=== PATIENT | male | born 1950 | race Caucasian/White ===

== ENCOUNTER → 2020-09-22 | Outpatient (CLI) | payer MEDICARE ==
[~2020-09-22] MED LIST: ASPI81TA45 PO; ATOR40TA78 PO; CHOL10003 PO; METO25TA35 PO
[2020-09-22 15:55] LABS: BASOPHILS % (AUTO) 2 % (0-1); EOSINOPHILS % (AUTO) 3 % (1-7); LYMPHOCYTES % (AUTO) 29 % (22-44); MEAN CORPUSCULAR HEMOGLOBIN 31.2 pg (27.5-34.5); MEAN CORPUSCULAR HGB CONC 33.7 g/dL (33.2-36.2); MEAN PLATELET VOLUME 8.7 fL (7.4-10.4); MONOCYTES % (AUTO) 11 % (2-9); NEUTROPHILS % (AUTO) 55 % (42-75); PLATELET COUNT 182 x10^3/uL (130-400); RED BLOOD COUNT 4.73 x10^6/uL (4.38-5.82); RED CELL DISTRIBUTION WIDTH 15.3 % (9.4-14.8)
[2020-09-22 16:03] LABS: ANION GAP 3 mmol/L (5-15); CALCIUM 8.8 mg/dL (8.5-10.1); CHLORIDE 108 mmol/L (98-107); CREATININE 1.08 mg/dL (0.7-1.3)
[2020-09-22 16:25] LABS: MICROSCOPIC INDICATED
[2020-09-22 16:27] LABS: MD SCAN
== END | disposition home or self-care (01) ==
LOC: STAR 14:33
PROVIDERS: ATTEND Urology
DX: Z01.818 Encounter for other preprocedural examination (principal); N20.1 Calculus of ureter
CPT/HCPCS: 36415; 80048; 81001; 85025; 87086; 93005

== ENCOUNTER 2020-09-28 14:23 | Day surgery (SDC) | payer MEDICARE ==
[~2020-09-28] VITALS: Ht 175.3 cm; Wt 90.7 kg
[2020-09-28] MEDS ORDERED: CHLORHEXIDINE 15 ML UDC ONE (14:43)
[2020-09-28] MEDS ORDERED: LACTATED RINGERS 1,000 ML IV SCH (15:00)
[2020-09-28] MEDS ORDERED: CHLORHEXIDINE 15 ML UDC MM ONE (15:00)
[2020-09-28 15:02] VITALS: BP 123/79
[2020-09-28] MEDS ORDERED: NITR100C56 PO (15:02)
[2020-09-28] MEDS ORDERED: FENTANYL PF 250 MCG/5ML ONE (16:02)
[2020-09-28] MEDS ORDERED: OMNIPAQUE 350 MG/ML, 50 ML BOTTLE ONE (16:04)
[2020-09-28] MEDS ORDERED: LABETALOL 5MG/ML, 20ML IV PRN (16:30)
[2020-09-28] MEDS ORDERED: MEPERIDINE/PF 25MG/0.5ML IVPush PRN (16:30)
[2020-09-28] MEDS ORDERED: OXYcodone 5 MG/5 ML ORAL.SOL UDC PO PRN (16:30)
[2020-09-28] MEDS ORDERED: HYDROmorphone 2 MG/ML, 1ML IVPush PRN (16:30)
[2020-09-28] MEDS ORDERED: FENTANYL PF 100 MCG/2ML IV PRN (16:30)
[2020-09-28] MEDS ORDERED: hydrALAzine 20 MG/ML, 1ML IV PRN (16:30)
[2020-09-28] MEDS ORDERED: ALBUTEROL SULFATE 2.5 MG/3 ML NPPB PRN (16:30)
[2020-09-28] MEDS ORDERED: ACETAMINOPHEN 325 MG TABLET PO PRN (16:30)
[2020-09-28] MEDS ORDERED: PROMETHAZINE 25 MG/ML, 1ML IV PRN (16:30)
[2020-09-28] MEDS ORDERED: KETOROLAC 30 MG/1 ML IV PRN (16:30)
[2020-09-28] MEDS ORDERED: CEFAZOLIN 1,000 MG ONE (16:55)
[2020-09-28] MEDS ORDERED: ROCURONIUM 10MG/ML,5ML ONE (16:55)
[2020-09-28] MEDS ORDERED: DEXAMETHASONE 4 MG/ML, 1ML ONE (16:55)
[2020-09-28] MEDS ORDERED: SUCCINYLCHOLINE 20 MG/ML, 10ML ONE (16:55)
[2020-09-28] MEDS ORDERED: ONDANSETRON 2MG/ML, 2ML ONE (16:55)
[2020-09-28] MEDS ORDERED: PROPOFOL 10 MG/ML, 20ML ONE (16:55)
[2020-09-28] MEDS ORDERED: NEOSTIGMINE 1 MG/ML, 10ML ONE (16:55)
[2020-09-28] MEDS ORDERED: GLYCOPYRROLATE 0.2MG/1ML, 5ML ONE (16:55)
== END 2020-09-28 18:30 | disposition home or self-care (01) ==
LOC: OR 14:23
PROVIDERS: ATTEND Urology
DX: Z43.6 Encounter for attention to other artificial openings of urinary tract (principal); N20.0 Calculus of kidney; N17.9 Acute kidney failure, unspecified; I10 Essential (primary) hypertension; I25.2 Old myocardial infarction; E78.5 Hyperlipidemia, unspecified; Z79.82 Long term (current) use of aspirin; Z79.899 Other long term (current) drug therapy; Z86.16 Personal history of COVID-19; Z87.442 Personal history of urinary calculi; Z82.49 Family history of ischemic heart disease and other diseases of the circulatory system
CPT/HCPCS: 50389; 52356; 74018; C1758; C1769; C2617; J0330; J0690; J1100; J2405; J2704; J3010; J7120; 76000; J2710; Q9967